=== PATIENT | male | born 1950 | race Caucasian/White ===

== ENCOUNTER 2016-09-14 15:16 | Outpatient (CLI) ==
[2015-09-19 19:40] VITALS: BMI 30.1
--- NOTE | 2016-09-14 15:50 | DI ---
Exam: Two x-rays of the right hip. Comparison: None available. Reason for exam: Pain. FINDINGS: No acute fracture or dislocation. The right femoral head articulates with the acetabulum . There is mild degenerative disease with sclerotic change. Impression: No acute fracture or dislocation in the right hip
--- NOTE | 2016-09-14 15:51 | DI ---
Exam: Two x-rays of the left hip. Comparison: None available. Reason for exam: Pain. FINDINGS: No acute fracture or dislocation. The femoral head articulates with the acetabulum. The re are mild degenerative changes with osteophyte formation. Impression: No acute fracture or dislocation in the left hip
--- NOTE | 2016-09-14 15:56 | DI ---
Exam: Three x-rays of the lumbar spine. Reason for exam: Pain. Comparison: None available. FINDINGS: Multilevel degenerative disease is seen throughout the lower thoracic and lumbosacral spi ne with intervertebral body disc space height loss, osteophyte formation, and facet hypertrophy. There is approximately 8 mm of retrolithesis of L3 on L4 and 6 mm of retrolithesis of L1 on L2. Inte rvertebral body disc space height loss is seen at T11-T12, 212 - L1, L1-L2, and L5-S1. There is age indeterminate vertebral body height loss at T12. Calcifications are seen within the aor ta. Impression: 1. Multilevel degenerative disease with retrolisthesis of L3 on L4 and L1 on L2. If clinical concer n exists for radiculopathy or myelopathy MRI may be performed. 2. Multilevel intervertebral body disc space height loss and osteophyte formation. 3. Age indeterminate vertebral body height loss at T12.
== END 2016-09-14 15:17 | disposition home or self-care (01) ==
LOC: RAD 15:16
PROVIDERS: ATTEND Internal Medicine
DX: M25.552 Pain in left hip (principal); M25.551 Pain in right hip; M54.40 Lumbago with sciatica, unspecified side

== ENCOUNTER 2016-09-17 09:32 | Outpatient (CLI) ==
[2015-09-19 19:40] VITALS: BMI 30.1
[2016-09-17 10:28] LABS: ALBUMIN 4.1 g/dL (3.4-5.0); ALBUMIN/GLOBULIN RATIO 1.17; BILIRUBIN,TOTAL 0.73 mg/dL (0.00-1.20); CREATININE 1.25 mg/dL (0.60-1.10); TOTAL PROTEIN 7.6 g/dL (5.8-8.1)
== END 2016-09-17 09:33 | disposition home or self-care (01) ==
LOC: LAB 09:32
PROVIDERS: ATTEND Internal Medicine
DX: E87.6 Hypokalemia (principal)
CPT/HCPCS: 36415; 80053

== ENCOUNTER 2017-09-09 09:59 | Outpatient (CLI) ==
[2015-09-19 19:40] VITALS: BMI 30.1
--- NOTE | 2017-09-09 13:39 | MRI ---
EXAM: MRI of the left shoulder without contrast COMPARISON: MRI of the left shoulder 04/22/2014. Left shoulder radiographs 03/24/2014. HISTORY: Left shoulder pain and decreased range of motion. Rotator cuff repair 2 years ago. TECHNIQUE: Multiplanar noncontrast MR images of the left shoulder were acquired using a 1.2 [employer] ma gnet. FINDINGS: No recent radiographs of the left shoulder are available for comparison and radiographic c orrelation is recommended. There is susceptibility artifact related to multiple surgical anchors within the greater tuberosity f rom interval attempted rotator cuff reconstruction. There is a full-thickness, near full width defec t involving the supraspinatus anteriorly measuring 3.7 cm in medial to lateral dimension and 2.6 cm i n anterior-posterior dimension. Some residual intact fibers of the supraspinatus are noted more post eriorly with thinning of those fibers of the adjacent anterior portion of the infraspinatus over a le ngth of 3.0 cm with residual intact fibers at that level. Thinning of the distal subscapularis with some articular surface irregularity of the supra insertional fibers though with residual intact fiber s identified. Small glenohumeral joint effusion with fluid extending into the subacromial/subdeltoid bursa via the full-thickness rotator cuff defect. Moderate glenohumeral joint osteoarthrosis with high-riding humeral head with narrowing of the acromi ohumeral space. No evidence of an acute fracture or dislocation. Limited assessment glenoid labrum on this non arthrographic study with suspected intrasubstance degeneration. No paralabral cyst. The long head of the biceps is medially subluxed relative to the bicipital groove with thinning of th e tendon at the level of its intra-articular and bicipital groove segments related to a a near comple te tear with only thin residual intact fibers identified. Postoperative changes of the acromioclavicular joint related to subacromial decompression with wideni ng of the joint space related previous surgery. No abnormal subluxation of the distal clavicular rem nant. Mild diffuse muscle atrophy with moderate fatty infiltration of the infraspinatus. IMPRESSION: 1. Status post attempted reconstruction of the rotator cuff. Full-thickness, near full width defect of the supraspinatus anteriorly as described in addition to some thinning of the distal infraspinatu s and subscapularis. Glenohumeral joint effusion with fluid extending into the subacromial/subdeltoi d bursa via the full-thickness rotator cuff defect. 2. Moderate glenohumeral joint osteoarthrosis. 3. Suspected intrasubstance degeneration of the glenoid labrum. 4. Marked thinning of the long head biceps suggesting a near-complete tear with medial subluxation o f the tendon remnant relative to the bicipital groove. 5. Postoperative changes of the acromioclavicular joint.
== END 2017-09-09 10:00 | disposition home or self-care (01) ==
LOC: RAD 09:59
PROVIDERS: ATTEND Orthopaedic Surgery
DX: Z98.890 Other specified postprocedural states (principal)

== ENCOUNTER 2018-10-27 16:32 | Outpatient (CLI) ==
[2015-09-19 19:40] VITALS: BMI 30.1
== END 2018-10-27 16:33 | disposition home or self-care (01) ==
LOC: LAB 16:32
PROVIDERS: ATTEND Orthopaedic Surgery
DX: Z98.890 Other specified postprocedural states (principal)
CPT/HCPCS: 36415; 85610

== ENCOUNTER 2018-10-29 16:58 | Outpatient (CLI) ==
[2015-09-19 19:40] VITALS: BMI 30.1
== END 2018-10-29 16:59 | disposition home or self-care (01) ==
LOC: LAB 16:58
PROVIDERS: ATTEND Orthopaedic Surgery
DX: Z51.81 Encounter for therapeutic drug level monitoring (principal)
CPT/HCPCS: 36415; 85610